=== PATIENT | female | born 1975 | race African-American/Black ===

== ENCOUNTER 2020-10-03 18:17 | Emergency (ER) | payer MEDICAID ==
[~2020-10-03] VITALS: Ht 172.7 cm; Wt 86.2 kg
[2020-10-03 18:17] VITALS: BP_SYST 105
--- NOTE | 2020-10-03 18:17 | NUR ---
BROUGHT IN BY GOLDIE MELENDEZ, HERE FOR OK TO BOOK.
--- NOTE | 2020-10-03 18:19 | NUR ---
DR MURPHY AT BEDSIDE FOR EVALUATION. PT STATES NO PAIN OR INJURY.
--- NOTE | 2020-10-03 18:30 | NUR ---
Patient given written and verbal discharge instructions and verbalizes understanding. ER MD discussed with patient the results and treatment provided. Patient in stable condition. ID arm band removed. Rx of NONE given. Patient educated on pain management and to follow up with PMD. Pain Scale 0/10. Opportunity for questions provided and answered. Medication side effect fact sheet provided.
== END 2020-10-03 18:30 ==
LOC: SED 18:17
DX: Z02.89 Encounter for other administrative examinations (principal)
CPT/HCPCS: 99283

== ENCOUNTER 2021-11-01 16:44 | Emergency (ER) | payer MEDICAID ==
[~2021-11-01] VITALS: Ht 175.3 cm; Wt 95.3 kg
[2021-11-01 17:11] VITALS: BP_SYST 131
--- NOTE | 2021-11-01 17:11 | NUR ---
PT A/OX4. AMBULATORY, FROM HOME C/O VAGINAL BLEEDING X 2 WK , PT REPORTED 3D , DIDNT RECEIVED COVID VACINE. PT PLACED IN R7 ON MONITOR , STABLE , COMPLAINING OF PAIN 10O
--- NOTE | 2021-11-01 17:21 | NUR ---
ER at bedside examining patient.
[2021-11-01 17:23] LABS: BILIRUBIN,URINE NEGATIVE (NEGATIVE); BLOOD, URINE 3+ (NEGATIVE); COLOR,URINE YELLOW (YELLOW); GLUCOSE,URINE NEGATIVE (NEGATIVE); KETONES,URINE NEGATIVE (NEGATIVE); LEUKOCYTE ESTERASE ,URINE 1+ (NEGATIVE); NITRITE, URINE NEGATIVE (NEGATIVE); PROTEIN URINE NEGATIVE (NEGATIVE)
--- NOTE | 2021-11-01 17:30 | NUR ---
blood drawn by quality control lab technician .
[2021-11-01 17:38] LABS: CLARITY/URINE HAZY (CLEAR)
[2021-11-01 17:39] LABS: RBC,URINE 20-50 /HPF (0-3)
[2021-11-01 17:40] LABS: BACTERIA,URINE MODERATE /HPF (None Seen)
[2021-11-01 17:41] LABS: MUCUS,URINE 1+ /LPF (None Seen)
[2021-11-01] MEDS ORDERED: ACETAMINOPHEN 500 MG TABLET PO ONE (18:15)
[2021-11-01 18:25] LABS: BASOPHILS # (AUTO) 0.1 K/uL (0.0-0.2); BASOPHILS % (AUTO) 1.3 % (0.0-2.0); EOSINOPHILS % (AUTO) 0.7 % (0.0-4.0); HEMATOCRIT 32.4 % (36-48); HEMOGLOBIN 10.6 g/dL (12.0-16.0); LYMPHOCYTES # (AUTO) 1.5 K/uL (1.0-5.5); LYMPHOCYTES % (AUTO) 21.5 % (20.5-51.5); MEAN CORPUSCULAR HEMOGLOBIN 30 pg (27-31); MEAN CORPUSCULAR HGB CONC 33 % (32-36); MEAN CORPUSCULAR VOLUME 91 fL (79.0-98.0); MONOCYTES # (AUTO) 0.5 K/uL (0.0-1.0); MONOCYTES % (AUTO) 7.9 % (1.7-9.3); NEUTROPHILS # (AUTO) 4.8 K/uL (1.8-7.7); NEUTROPHILS % (AUTO) 68.6 % (40.0-70.0); PLATELET COUNT (AUTO) 226 K/uL (130-430); RED BLOOD CELL COUNT(AUTO) 3.58 MIL/uL (4.2-6.2); RED CELL DISTRIBUTION WIDTH 13.9 % (9.0-15.0); WHITE BLOOD COUNT (AUTO) 6.9 K/uL (4.8-10.8)
--- NOTE | 2021-11-01 18:45 | NUR ---
pt md carol and charge nurse aware
--- NOTE | 2021-11-01 18:46 | NUR ---
Note castillofranklyn in ED - 11/01/21 at 1902 by [email or web address] patient wasnt found in awaiting room. [facility] patient was called multiple times. pt wasnt found patient alopped. Charge nurse and doctor Sin aware.
--- NOTE | 2021-11-01 22:00 | NUR ---
Pt stated she was going to leave and come back for her records on another day to follow up with her primary care physician.
== END 2021-11-01 22:00 | disposition left against medical advice (07) ==
LOC: SED 16:44
DX: O20.0 Threatened abortion (principal); O23.41 Unspecified infection of urinary tract in pregnancy, first trimester; O99.011 Anemia complicating pregnancy, first trimester; Z3A.01 Less than 8 weeks gestation of pregnancy
CPT/HCPCS: 36415; 76801; 76817; 81000; 81025; 84702; 85025; 86900; 86901; 87086; 99284